=== PATIENT | female | born 1950 | race Caucasian/White ===

== ENCOUNTER 2023-06-06 01:09 | Emergency (ER) | payer OTHER ==
[~2023-06-06] VITALS: Ht 160 cm; Wt 46.3 kg
[2023-06-06 02:15] LABS: BASOPHILS ABSOLUTE AUTO 0.07 K/mm3 (0.00-0.23); BASOPHILS PERCENT AUTO 1 % (0-2); EOSINOPHILS ABSOLUTE AUTO 0.07 K/mm3 (0.00-0.68); EOSINOPHILS PERCENT AUTO 1 % (0-6); Hematocrit 37.9 % (33.0-51.0); Hemoglobin 12.4 g/dL (11.5-16.0); IMMATURE GRAN ABSOLUTE AUTO 0.09 K/mm3 (0.00-0.10); IMMATURE GRAN PERCENT AUTO 1 % (0-1); LYMPHOCYTES ABSOLUTE AUTO 1.28 K/mm3 (0.84-5.20); LYMPHOCYTES PERCENT AUTO 14 % (21-46); MONOCYTES PERCENT AUTO 9 % (4-13); Mean Corpuscular HGB 31.6 pg (26.0-34.0); Mean Corpuscular HGB Conc 32.7 g/dL (31.5-36.5); Mean Corpuscular Volume 96 fL (80-100); Mean Platelet Volume 9.4 fL (9.1-12.4); NEUTROPHILS ABSOLUTE AUTO 6.72 K/mm3 (1.96-9.15); NEUTROPHILS PERCENT AUTO 74 % (41-73); Platelet Count 503 K/mm3 (150-400); RDW Coefficient Variation 12.7 % (11.7-14.2); RDW Standard Deviation 44.8 fL (35.1-46.3); Red Blood Cell Count 3.93 M/mm3 (3.80-5.20); White Blood Cell Count 9.03 K/mm3 (4.00-11.30)
[2023-06-06 02:28] LABS: Albumin, Blood 2.5 g/dL (3.4-5.0); Albumin/Globulin Ratio 0.5 (0.8-1.8); Bilirubin, Total 0.2 mg/dL (0.1-1.0); Calcium, Blood 8.8 mg/dL (8.5-10.1); Creatinine, Blood 0.67 mg/dL (0.40-1.00); Globulin, Blood 4.6 g/dL (2.2-4.0); Potassium, Blood 4.1 mmol/L (3.5-5.5); Total Protein, Blood 7.1 g/dL (6.4-8.2)
[2023-06-06 02:54] LABS: Base Excess Venous 10.5 mmol/L; Bicarbonate Venous 32.3 mmol/L (24.0-30.0); PCO2 Venous 57.5 mmHg (38-42)
[2023-06-06] MEDS ORDERED: PRED20 PO (03:47)
[2023-06-06] MEDS ORDERED: ALBU90OI INH (03:47)
[2023-06-06] MEDS ORDERED: BREO ELLIPTA 51 EACH INH (03:47)
[2023-06-06] MEDS ORDERED: AZIT250 PO (03:48)
[2023-06-06 07:25] VITALS: BP 116/71
== END 2023-06-06 08:00 | disposition home or self-care (01) ==
LOC: ER 01:09
PROVIDERS: Emergency Medicine; Student in an Organized Health Care Education/Training Program
DX: J44.1 Chronic obstructive pulmonary disease with (acute) exacerbation (principal); F17.210 Nicotine dependence, cigarettes, uncomplicated
CPT/HCPCS: 71046; 80053; 82803; 85025; 93005; 93010; 94640; 94664; 96365; 99285-25; A9270; J3475; J7512

== ENCOUNTER 2023-06-16 18:32 | Inpatient (IN) | payer OTHER ==
[~2023-06-16] VITALS: Ht 160 cm; Wt 54.7 kg
[~2023-06-16 18:32] MED LIST: ALBU90OI INH; AZIT250 PO; BREO ELLIPTA 51 EACH INH; PRED20 PO
[2023-06-16 19:01] LABS: BASOPHILS ABSOLUTE AUTO 0.03 K/mm3 (0.00-0.23); BASOPHILS PERCENT AUTO 0 % (0-2); EOSINOPHILS ABSOLUTE AUTO 0.02 K/mm3 (0.00-0.68); EOSINOPHILS PERCENT AUTO 0 % (0-6); Hematocrit 40.9 % (33.0-51.0); Hemoglobin 13.2 g/dL (11.5-16.0); IMMATURE GRAN ABSOLUTE AUTO 0.03 K/mm3 (0.00-0.10); IMMATURE GRAN PERCENT AUTO 0 % (0-1); LYMPHOCYTES ABSOLUTE AUTO 1.11 K/mm3 (0.84-5.20); LYMPHOCYTES PERCENT AUTO 11 % (21-46); MONOCYTES ABSOLUTE AUTO 0.96 K/mm3 (0.16-1.47); MONOCYTES PERCENT AUTO 10 % (4-13); Mean Corpuscular HGB 31.7 pg (26.0-34.0); Mean Corpuscular HGB Conc 32.3 g/dL (31.5-36.5); Mean Corpuscular Volume 98 fL (80-100); Mean Platelet Volume 9.6 fL (9.1-12.4); NEUTROPHILS ABSOLUTE AUTO 7.93 K/mm3 (1.96-9.15); NEUTROPHILS PERCENT AUTO 79 % (41-73); Platelet Count 325 K/mm3 (150-400); RDW Standard Deviation 50.3 fL (35.1-46.3); Red Blood Cell Count 4.16 M/mm3 (3.80-5.20); White Blood Cell Count 10.08 K/mm3 (4.00-11.30)
[2023-06-16 19:21] LABS: Albumin, Blood 2.7 g/dL (3.4-5.0); Albumin/Globulin Ratio 0.6 (0.8-1.8); Bilirubin, Total 0.4 mg/dL (0.1-1.0); Bun/Creatinine Ratio 18.4 (12.0-20.0); Creatinine, Blood 0.6 mg/dL (0.40-1.00); Globulin, Blood 4.3 g/dL (2.2-4.0)
[2023-06-16 23:14] LABS: Influenza A, PCR NEGATIVE (NEGATIVE); Influenza B, PCR NEGATIVE (NEGATIVE); Resp Syncytial Virus, PCR NEGATIVE (NEGATIVE); SARS-Cov-2 (COVID-19) PCR, MMC NEGATIVE (NEGATIVE)
[2023-06-16 23:57] LABS: Anti-Xa UFH, PHA Monitoring <0.10 IU/mL; International Normalized Ratio 1.11; Prothrombin Time Results 11.6 Sec (9.7-11.5)
[2023-06-17] VITALS (17 sets, daily range): BP systolic 88–142; BP diastolic 58–90
--- NOTE | 2023-06-17 04:12 | NUR ---
REPORT FROM ED RN- PT BROUGHT VIA WC TO ROOM 326 - PT SPOUSE PRIYANKA AT BEDSIDE, PT UP TO BSC - PT DYSPNEA WITH EXERTION- ENCOURAGED PT TO SLOW DOWN HER BREATHING AND BREATH THROUGH HER NOSE AND PURSED LIP EXHALE- O2 SATS 93-96% - STARTED HEPARIN DRIP PER ORDER AND TELE APPLIED, PT TAKEN TO RADIOLOGY FOR A STAT CTA- PT RETURNED TO ROOM ASSESSMENT DONE- PT INDEPENDENT TO THE BSC- PT UNALBE TO SLEEP AND SITTING UP IN BED RESTING - [address] SHEARER TO STOP THE HEPARIN STAT AND RETURN CALL AND NOTIFY DR. SHEARER OF HOW MUCH HEPARIN INFUSED, 2740 UNITS INFUSED AND CALLED TO DR. SHEARER- CALL TO FORWARD CTA TO [facility] - PT ANXIOUS- OFFERED TO CALL SPOUSE PRIYANKA TO COME IN AND BE WITH PT- PT AGREED, NOTIFIED PT THAT DR. SHEARER IS ON ANOTHER LINE AND ONCE AVAILABLE WILL CALL AND REQUESTED SOMETHING FOR ANXIETY- PT AGREED, PT REPORTS SHE SUFFERS FROM ANXIETY AT TIMES.
--- NOTE | 2023-06-17 05:55 | NUR ---
[address] SHEARER REQUESTING ANXIETY MEDICATION- NEW ORDER FOR ATIVAN 0.5MG IV GIVEN- 0435 REPORT TO EUNICE ANDERSON IN PCU - PT TO GO TO RADIOLOGY FOR CTA AND THEN BE TRANSFERRED TO PCU 11- DIRECTED PT'S PRIYANKA TO GO TO ROOM PCU 11 AND PT WILL GO THERE FROM RADIOLOGY-
--- NOTE | 2023-06-17 06:01 | NUR ---
SHIFT SUMMARY PT A&0X4. SHE RECEIVED ATIVAN UP ON THE MEDICAL FLOOR PER REPORT, AND SHE FELL ASLEEP SOON AFTER SHE ARRIVED TO THE ROOM. PT ON HUMIDIFIED 4L NC MAINTAINING O2 SATURATION ABOVE 92%, LUNG SOUNDS COARSE, CONGESTED COUGH WITH THICK CLEAR/SCOTT MUCUS, PT SAID SOB WHEN SHE TALKS. HR SINUS TACH 110'S WITH OCCASIONAL PVCs, BP 129/79, PT DENIES CHEST PAIN/PRESSURE. PT REPORTS SHE IS CONTINENT OF URINE AND STOOL, NO OP YET THIS SHIFT. NO WOUNDS/SKIN BREAK DOWN PRESENT. MILD/MODERATE EDEMA BLE. IS IN ROOM WITH PT, PT SLEEPING, CALL LIGHT WITHIN REACH.
[2023-06-17 06:33] LABS: Bun/Creatinine Ratio 14.9 (12.0-20.0); Calcium, Blood 8.9 mg/dL (8.5-10.1); Creatinine, Blood 0.67 mg/dL (0.40-1.00)
--- NOTE | 2023-06-17 10:08 | NUR ---
ASSUMED CARE OF PATIENT 0700 PATIENT IS LETHARGIC WITH INTERACTION AT BEGINNING OF SHIFT. ECHO CAME AND SHE SLOWLY BECAME MORE ALERT. AT BEDSIDE. PT TACHYCARDIC AND TACHYPNIC AND SOB WITH ANY ACTIVITY EVEN TALKING. TRIED A PURWICK BUT WAS NOT HELPFUL SHE JUST WAS INCONT. IN PAD. GAVE DIURETICS TO IV, FLUSHED WITHOUT DIFFICULTY/ R FA IV. FED PT BREAKFAST BUT SHE WAS IN MORE DISTRESS SO SHE WAS ASKED TO NOT TALK AND JUST WORK ON BREATHING. OXYGENATION TITRATED UP AND DOWN FROM 4L HHF NC TO 9 L HHF NC AND THEN BACK TO 6L HHF WHERE SHE SITS CURRENTLY. ABD SOFT SHE NEEDS TO [place] ENCOURAGING HER TO USE BEDPAN AND NOT BEAR DOWN DUE TO HER DIAGNOSIS. WILL CONTINUE TO FOLLOW CARE.
--- NOTE | 2023-06-17 13:23 | NUR ---
NOON ASSESSMENT: UPDATES PATIENT HAS BEEN MILDLY ANXIOUS ESPECIALLY WHEN THE SPOUSE WALKS AWAY. PATIENT HAS NEEDED HER OXYGENATION TITRATED FREQ. TO KEEP HER OXYGENATION AT 90-92%. SHE HAS BEEN ON AND OFF THE OPEN FACE MASK TO HHF NC TITRATED FROM 3-7 LITER FLOW EACH TIME. PATIENT DROPS IN OXYGENATION WHEN TALKING AND WHEN MOVING AROUND AND EATTING. SHE HAS VOIDED FREQ. ON THE BEDPAN DUMPING 300ML EACH TIME CLEAR YELLOW URINE. VS REMAINS.. TACHYCARDIC SINUS TACH. AND RR TACHYPNEA AND SHALLOW WITH CRACKLES IN THE BASES BILAT. DR ESTRADA CAME BY AND SAW THE PATIENT. XANAX WAS ORDERED. AND NOW GIVEN. WILL CONTINUE CARE AND TREATMENT PLAN.
--- NOTE | 2023-06-17 18:02 | NUR ---
END OF SHIFT REPORT PATIENT HAS BEEN INTERMITTENTLY AWAKE THEN LETHARGIC TODAY. SHE CONTINUES TO HAVE CHALLENGES KEEPING HER OXYGENATION AT 90-92%. SHE REMAINS AT 6L HHF NC AT THIS TIME. SHE IS ENCOURAGED TO EAT HOWEVER SHE IS TO EAT SMALL SOFT BITES OF FOOD. HER ECHO RESUTLED AND HER EF IS 25-30%. SHE IS STILL ABLE TO SAY SHE NEEDS TO VOID AND USES A BEDPAN TO VOID IN AT THIS TIME. SHE IS TOO TENOUS AND LETHARGIC AND WEAK TO BE GETTING HER TO THE BEDSIDE COMMODE. IS IN ROOM GIVING LOTS OF EMOTIONAL AND PHYSICAL SUPPORT. DR ESTRADA WAS AWARE OF HER LOW SYSTOLIC BP'S AND HAS DISCONTINUED HER LASIX THIS EVENING. WILL GIVE REPORT TO NEXT SHIFT TO RESUME CARE.
[2023-06-17 22:02] LABS: PCO2 Arterial 105 mmHg (35-45); PO2 Arterial 65.7 mmHg (80-100); pH Blood Arterial 7.23 (7.35-7.45)
[2023-06-17 23:59] LABS: Base Excess Venous 15.8 mmol/L; Bicarbonate Venous 36.1 mmol/L (24.0-30.0); PCO2 Venous 82.5 mmHg (38-42); pH Blood Venous 7.32 (7.34-7.37)
[2023-06-18] VITALS (22 sets, daily range): BP systolic 95–113; BP diastolic 60–82
--- NOTE | 2023-06-18 02:00 | NUR ---
AT BEGINNING OF SHIFT PATIENT WAS ALERT AND ORIENTED. AREOUND 2112 PT'S SAID SHE BECAME DISORIENTED. AFTER ASKING PATIENT SEVERAL TIMES SHE WAS ABLE TO TELL ME HER FIRST AND LAST NAME ALONG WITH THE MONTH SHE WAS BORN, BUT SHE WAS UNABLE TO ANSWER ANY OTHER ORIENTATION QUESTIONS. SHE KEPT SAYING "OKAY" TO EVERYTHING THAT WAS ASKED. SHE HAD A COUGHING SPELL WITH THICK MUCUS AND SECRETIONS WERE SUCTIONED, HAD TO TITRATE UP TO 15L HIGH FLOW FROM 5L HIGH FLOW. MD AND RESPIRATORY THEREAPY WAS NOTIFIED. MD'S AND RESPIRATORY CAME INTO ROOM TO ASSESS PT. ABG WAS ORDERED AND CO2 CAME BACK AT 105, PT WAS PLACED ON BIPAP AND MAINTAINING 02 SATRATION ABOVE 90%. PT UNABLE TO LIFT HER ARMS, ABLE TO GRASP WITH HER FINGERS, WEAKNESS IN BOTH LEGS, ABLE TO WIGGLE TOES. PERRLA, SYMMETRICAL SMILE, ABLE TO STICK TONGUE OUT STRAIGHT AND NOT DEVIATE TO EITHER SIDE. PT'S WAS BY BEDSIDE THE MAJORITY OF NIGHT, HE LEFT TO GO HOME AND GET SOME SLEEP. PT'S DAUGHTER RELIEVED PTS , SHE DROVE DOWN FROM [place]. PT HAS BEEN SLEEPING SINCE PLACED ON BIPAP, SHE WOKE UP ONCE AND WAS RESTLESS, BUT QUICKLY FELL BACK TO SLEEP. PT'S DAUGHTER IS AT BEDSIDE, CALL LIGHT WITHIN REACH.
[2023-06-18 04:18] LABS: Base Excess Venous 18.5 mmol/L; Bicarbonate Venous 39.4 mmol/L (24.0-30.0); PCO2 Venous 64.2 mmHg (38-42); pH Blood Venous 7.43 (7.34-7.37)
--- NOTE | 2023-06-18 04:41 | NUR ---
SHIFT SUMMARY PT AWAKE AND ALERT AND ORIENTED X 4. NOW ON HUMIDIFIED HIGH FLOW NC ON 15L MAINTAINING O2 SATURATION ABOVE 90%. MD NOTIFIED AND WANTS US TO CONTINUE TO ENCOURAGE USE OF BIPAP TO FURTHER BRING DOWN CO2 LEVELS LONG PT CAN TOLERATE IT. PT DENIES SOB. HR 100'S, PT DENIES CHEST PAIN/PRESSURE, BP STABLE. PUREWICK IN PLACE SUCTIONING LUCIE COLORED URINE, ATTENDS IN PLACE WELL CHANGED PRN. MODERATE SWELLING OF BLE. PT RESTING IN BED, DAUGHTER AT BEDSIDE, CALL LIGHT WITHIN REACH.
--- NOTE | 2023-06-18 05:10 | NUR ---
PT AGREED TO GO BACK ON BIPAP FOR A BIT. SHE DENIES SOB, MAINTAINING 02 SATURATION ABOVE 90%. PT RESTING IN BED TRYING TO SLEEP. DAUGHTER AT BEDSIDE. CALL LIGHT WITHIN REACH.
[2023-06-18 05:21] LABS: BASOPHILS ABSOLUTE AUTO 0.02 K/mm3 (0.00-0.23); BASOPHILS PERCENT AUTO 0 % (0-2); EOSINOPHILS PERCENT AUTO 0 % (0-6); Hematocrit 39.3 % (33.0-51.0); IMMATURE GRAN ABSOLUTE AUTO 0.04 K/mm3 (0.00-0.10); IMMATURE GRAN PERCENT AUTO 0 % (0-1); LYMPHOCYTES ABSOLUTE AUTO 0.36 K/mm3 (0.84-5.20); LYMPHOCYTES PERCENT AUTO 4 % (21-46); MONOCYTES ABSOLUTE AUTO 0.26 K/mm3 (0.16-1.47); MONOCYTES PERCENT AUTO 3 % (4-13); Mean Corpuscular HGB 31.5 pg (26.0-34.0); Mean Corpuscular HGB Conc 30.5 g/dL (31.5-36.5); Mean Platelet Volume 10.1 fL (9.1-12.4); NEUTROPHILS ABSOLUTE AUTO 8.32 K/mm3 (1.96-9.15); NEUTROPHILS PERCENT AUTO 93 % (41-73); Platelet Count 303 K/mm3 (150-400); RDW Coefficient Variation 13.8 % (11.7-14.2); RDW Standard Deviation 52.4 fL (35.1-46.3); Red Blood Cell Count 3.81 M/mm3 (3.80-5.20)
[2023-06-18 05:40] LABS: Mean Corpuscular Volume 103 fL (80-100)
[2023-06-18 05:45] LABS: Bun/Creatinine Ratio 22.3 (12.0-20.0); Creatinine, Blood 0.58 mg/dL (0.40-1.00); Magnesium, Blood 2.1 mg/dL (1.6-2.4); Potassium, Blood 4.3 mmol/L (3.5-5.5); Thyroid Stimulating Hormone 0.145 uIU/mL (0.360-4.800)
--- NOTE | 2023-06-18 10:05 | NUR ---
ASSUMED CARE OF PT AT ABOUT ~0710. PT ON BIPAP AND SATTING >95% ON THE BIPAP. BEDREST AT THIS TIME. PT REPORTEDLY VERY SOB WITH ANY EXERTION. PT WAS EXPERIENCING INCREASING ANXIETY NOT LONG AFTER SHIFT CHANGE. ADMINISTERED PO XANAX FOR MANAGEMENT SINCE WHICH TIME PT HAS BEEN ABLE TO REST AND SLEEP COMFORTABLY. CHEST XRAY PERFORMED IN ROOM AND PT TAKEN DOWN FOR CT THIS MORNING. TOLERATED BOTH WELL. HAS BEEN SLEEPING SINCE AND SLEPT THROUGH ASSESSMENT. PUREWICK IN PLACE. NO COMPLAINTS OF PAIN. TELE ON AND FUNCTIONING WELL. BED LOCKED IN LOWEST POSITION. CALL LIGHT LEFT WITHIN REACH. FAMILY AT BEDSIDE AND ENCOURAGED TO NOTIFY STAFF OF ANY NEW CONCERNS/COMPLAINTS/QUESTIONS/ETC.
--- NOTE | 2023-06-18 15:10 | NUR ---
TRANSFER ICU PT DIFFICULTY MAINTAINING SPO2 ON BIPAP: AVAPS, 85% FIO2. RR 20s-40s. FIO2 INCREASED TO 100% W/ PT STILL HAVING DIFFICULTY. PT FAMILY REPEATEDLY ASKING FOR BIPAP TO BE REMOVED SO PT CAN EAT DESPITE EDUCATION TO PT FAMILY REGARDING RISK OF TAKING MASK OFF FOR PO INTAKE WHILE REQUIRING BIPAP W/ HIGH SETTINGS. PT STILL W/ DIFFICULTY BREATHING W/ BIPAP 100% FIO2. ICU UNDERWATER PHOTOGRAPHER, RT & DR ESTRADA TO PT RM FOR DISCUSSION W/ PT & PT FAMILY REGARDING PLAN OF CARE. MD ESTRADA W/ ORDERS FOR IV ATIVAN, IV BUMEX & TRANSFER TO ICU FOR POTENTIAL POSSIBLE INTUBATION. REPORT GIVEN TO [employer]CH[employer]IC BY PT PRIMARY RNPAYAM & PT TAKEN TO ICU-10 @ APPROX 1500.
[2023-06-18 15:41] LABS: Source, Urine Foley catheter
[2023-06-18 15:54] LABS: Appearance, Urine Clear (Clear); Bilirubin, Urine Neg (Neg); Blood, Urine 2+ (Neg); Color, Urine Yellow (P-Yellow); Glucose Qualitative, Urine Neg (Neg); Ketones, Urine Neg (Neg); Leukocyte Esterase, Urine Neg (Neg); Nitrite, Urine Neg (Neg); Protein, Urine 1+ (Neg); Urobilinogen, Urine NORM (Normal)
[2023-06-18 16:01] LABS: Bacteria Few /hpf; Squamous Epithelial Cells Few /hpf (Few); White Blood Cells, Urine 0-2 /hpf (0-5)
--- NOTE | 2023-06-18 17:32 | NUR ---
PT ARRIVAL/SHIFT SUMMARY.... PT ARRIVED TO THE UNIT FROM PCU AT 1500, SHE IS ON BIPAP 20/10 AND 100% FIO2 TO KEEP O2 SATS>88% THIS WAS EVENTUALLY TITRATED DOWN TO 90% ONCE THE PT GOT SETTLED DOWN. TEMP SHEEHAN WAS PLACED PER ORDERS AND UA WAS SENT. PICC LINE WAS PLACED PER ORDERS WNL. THE PT IS IN SR/ST 80'S-100'S BP IS SOFT BUT STABLE WITH MAPS>65. TEMP VIA TEMP SHEEHAN IS 99.6. DR. SHAH WAS AT THE BEDSIDE TO ASSESS THE PT, PT'S IN THE ROOM AT THE TIME. PLANS TO [place] TRANSFER THE PT. CALL LIGHT IN REACH WILL CONTINUE TO MONITOR UNTIL REPORT IS GIVEN TO ONCOMING RN.
--- NOTE | 2023-06-18 19:25 | NUR ---
ASSUMED CARE OF PT AT 1900. REPORT RECEIVED AT BEDSIDE. PT AWAKENS DURING REPORT AND ACKNOWLEDGES REPORT THEN FALLS ASLEEP. PT MAINTAINS SATURATIONS LOW 90'S WITH CURRENT BIPAP SETTINGS. DR WALKER HAS COME THRU UNIT. QUICK UPDATE ON PT GIVEN. WILL REVIEW CHART AND PLAN OF CARE FOR THIS PT.
--- NOTE | 2023-06-18 22:10 | NUR ---
WAS NOTIFIED THAT ACCEPTING PHYSICIAN HAS BEEN MADE WITH ACCEPTING HOSPITAL AT [facility]. ROOM ASSIGNMENT RECEIVED. CALL MADE TO PRIYANKA, PT'S , INFORMED HIM OF PENDING TRANSFER. HE VOICES UNDERSTANDING AND IS ACCEPTING OF TRANSFER. DISCUSSED WITH PT THAT SHE HAS PLANNED TRANSFER TO [facility]. SHE NODS HER HEAD 'YES' IN AGREEMENT.
--- NOTE | 2023-06-18 22:37 | NUR ---
REPORT CALLED TO JUSTIN MAX AT [facility]. [address], ROOM 725 @ [phone]. REPORT DONE IN SBAR FASHION. ALLOWED FOR QUESTIONS. AWAITING TRANSPORTATION ARRANGEMENTS.
--- NOTE | 2023-06-19 00:37 | NUR ---
PT LEAVES ICU 10 VIA EMS IN CARE OF REACH. PRIOR TO LEAVING, PT DID NOT SUSTAIN SATURATIONS >90 PERCENT WITH BIPAP 20/10 WITH FIO2 100 PERCENT. DECISION MADE BI DR WALKER PER PHONE CALL TO HAVE ER COME AND INTUBATE PT PRIOR TO TRANSFER. 150 OF SUCCICONLYINE AND 20 ETOMIDATE GIVEN FOR INTUBATION. OGT PLACED. STAT XRAY DONE AND READ. PT'S WAS PRESENT PRIOR TO INTUBATION. BOTH PRIYANKA AND PT AGREED WITH THIS PLAN. CALL MADE TO [facility] WITH UPDATE OF PT NEEDING TO INTUBATED AND THAT REACH AND EMS HAVE LEFT FOR AIRPORT.
== END 2023-06-19 00:20 | disposition short-term general hospital (02) | DRG 189 ==
LOC: ER 18:32 → PCU 22:57 → MEDS 22:57 → ICUE 22:57 → MEDS 23:50 → PCU 06-17 05:11 → ICUE 06-18 15:00
PROVIDERS: Emergency Medicine; Internal Medicine; Internal Medicine Critical Care Medicine; Student in an Organized Health Care Education/Training Program; ADMIT Internal Medicine
PROC: 5A09357 Assistance with Respiratory Ventilation, Less than 24 Consecutive Hours, Continuous Positive Airway Pressure (ICD-10-PCS; 2023-06-16)
PROC: 5A09457 Assistance with Respiratory Ventilation, 24-96 Consecutive Hours, Continuous Positive Airway Pressure (ICD-10-PCS; 2023-06-17)
PROC: 4A033R1 Measurement of Arterial Saturation, Peripheral, Percutaneous Approach (ICD-10-PCS; 2023-06-17)
PROC: 0BH17EZ Insertion of Endotracheal Airway into Trachea, Via Natural or Artificial Opening (ICD-10-PCS; principal; 2023-06-18)
PROC: 06HY33Z Insertion of Infusion Device into Lower Vein, Percutaneous Approach (ICD-10-PCS; 2023-06-18)
DX: J96.01 Acute respiratory failure with hypoxia (principal); J98.11 Atelectasis; J90 Pleural effusion, not elsewhere classified; I42.9 Cardiomyopathy, unspecified; E44.0 Moderate protein-calorie malnutrition; Z11.52 Encounter for screening for COVID-19; I71.20 Thoracic aortic aneurysm, without rupture, unspecified; I71.40 Abdominal aortic aneurysm, without rupture, unspecified; F17.210 Nicotine dependence, cigarettes, uncomplicated; J43.9 Emphysema, unspecified; J96.02 Acute respiratory failure with hypercapnia; R79.1 Abnormal coagulation profile; I27.20 Pulmonary hypertension, unspecified; Z28.21 Immunization not carried out because of patient refusal; Z68.21 Body mass index [BMI] 21.0-21.9, adult
CPT/HCPCS: 0241U; 31500; 36415; 36569; 36600; 51702; 71045; 71046; 71260; 71275; 74174; 80048; 80053; 81001; 82803; 82947; 83735; 83880; 84443; 84484; 85025; 85379; 85520; 85610; 85651; 85730; 93005; 93010; 94002; 94640; 94660; 94664; 94762; 96374; 99285-25; A9270; C1751; C8929; J0330; J0456; J0696; J1644; J1940; J2060; J2704; J2930; J7030; J7050; Q9957; Q9967

== ENCOUNTER 2023-06-30 18:31 | Observation (INO) | payer OTHER ==
[~2023-06-30] VITALS: Ht 160 cm; Wt 47.5 kg
[2023-06-30 19:16] LABS: BASOPHILS ABSOLUTE AUTO 0.06 K/mm3 (0.00-0.23); BASOPHILS PERCENT AUTO 1 % (0-2); EOSINOPHILS ABSOLUTE AUTO 0.11 K/mm3 (0.00-0.68); EOSINOPHILS PERCENT AUTO 1 % (0-6); Hematocrit 41.2 % (33.0-51.0); Hemoglobin 13.6 g/dL (11.5-16.0); IMMATURE GRAN ABSOLUTE AUTO 0.05 K/mm3 (0.00-0.10); IMMATURE GRAN PERCENT AUTO 1 % (0-1); LYMPHOCYTES ABSOLUTE AUTO 1.97 K/mm3 (0.84-5.20); LYMPHOCYTES PERCENT AUTO 18 % (21-46); MONOCYTES ABSOLUTE AUTO 0.95 K/mm3 (0.16-1.47); MONOCYTES PERCENT AUTO 9 % (4-13); Mean Corpuscular HGB 31.5 pg (26.0-34.0); Mean Corpuscular Volume 95 fL (80-100); Mean Platelet Volume 10.1 fL (9.1-12.4); NEUTROPHILS ABSOLUTE AUTO 7.55 K/mm3 (1.96-9.15); NEUTROPHILS PERCENT AUTO 71 % (41-73); Platelet Count 311 K/mm3 (150-400); RDW Coefficient Variation 13.7 % (11.7-14.2); Red Blood Cell Count 4.32 M/mm3 (3.80-5.20); White Blood Cell Count 10.69 K/mm3 (4.00-11.30)
[2023-06-30 19:38] LABS: Albumin, Blood 2.8 g/dL (3.4-5.0); Albumin/Globulin Ratio 0.8 (0.8-1.8); Bilirubin, Total 0.4 mg/dL (0.1-1.0); Calcium, Blood 8.9 mg/dL (8.5-10.1); Creatinine, Blood 0.6 mg/dL (0.40-1.00); Globulin, Blood 3.5 g/dL (2.2-4.0); Potassium, Blood 3.7 mmol/L (3.5-5.5); Total Protein, Blood 6.3 g/dL (6.4-8.2)
[2023-07-01 02:10] VITALS: BP 107/61
[2023-07-01] MEDS ORDERED: ASPI81CH PO (02:25)
[2023-07-01] MEDS ORDERED: CLOP75 PO (02:27)
[2023-07-01] MEDS ORDERED: ATORVASTATIN CA80 M1 PO (02:27)
[2023-07-01] MEDS ORDERED: ENTRESTO 24 MG1 EACH PO (02:29)
[2023-07-01] MEDS ORDERED: FURO20 PO (02:30)
[2023-07-01] MEDS ORDERED: JARDIANCE10 MG PO (02:31)
[2023-07-01] MEDS ORDERED: METO50ER PO (02:32)
[2023-07-01] MEDS ORDERED: ALBU90OI INH (02:33)
[2023-07-01] MEDS ORDERED: SPIR25 PO (02:33)
--- NOTE | 2023-07-01 05:29 | NUR ---
SHIFT SUMMARY NOC A/O X 4. PLEASANT AND COOPERATIVE WITH CARE. ADMIT FROM ED WITH DX OF HYPOXIA. PT REPORTS SOB HAS GOTTEN WORSE OVER PAST MONTH. PT RECENTLY HAD 3 STENTS PLACED UP AT [facility] [place]. PT IS ON O2 2L/NC SPO2 > 92%. PT IS SBA TO BSC, CONT. PT ON TELE RUNNING NSR IN 70'S. PT HAS STAGE 1 PU ON COCCYX, MEPILEX DRESSING IN PLACE C/D/I. RX IS RECONCILED, AND AWAWITING OT PLACE ORDERS. PT IS CURRENTLY RESTING WITH BED IN LOWEST POSITION, AND CALL LIGHT WITHIIN REACH.
[2023-07-01 07:37] VITALS: BP 107/68
--- NOTE | 2023-07-01 14:19 | NUR ---
PT DISCHARGED FROM THE UNIT. IV REMOVED. DISCHARGE INSTRUCTIONS REVIEWED. MEDICATIONS FAXED TO [facility]. PT LEFT UNIT VIA WC WITH
== END 2023-07-01 14:18 | disposition home or self-care (01) ==
LOC: ER 18:31 → MEDS 18:32 → ENPENDDIS 07-01 12:06 → MEDS 07-01 14:18
PROVIDERS: Emergency Medicine; ADMIT Internal Medicine
DX: J96.01 Acute respiratory failure with hypoxia (principal); J44.9 Chronic obstructive pulmonary disease, unspecified; E43 Unspecified severe protein-calorie malnutrition; I50.22 Chronic systolic (congestive) heart failure; I25.2 Old myocardial infarction; F17.210 Nicotine dependence, cigarettes, uncomplicated; Z68.1 Body mass index [BMI] 19.9 or less, adult; I27.20 Pulmonary hypertension, unspecified; I71.40 Abdominal aortic aneurysm, without rupture, unspecified; J98.11 Atelectasis
CPT/HCPCS: 36415; 71046; 80053; 83605; 83880; 85025; 93005; 93010; 94761; 94762; 96360; 96361; 96372; 99285-25; A9270; G0378; J1650; J7030

== ENCOUNTER 2024-02-12 13:53 | Emergency (ER) | payer OTHER ==
[~2024-02-12] VITALS: Ht 160 cm; Wt 55.3 kg
[~2024-02-12 13:53] MED LIST changes: +ASPI81CH PO; +ATORVASTATIN CA80 M1 PO; +CLOP75 PO; +ENTRESTO 24 MG1 EACH PO; +FURO20 PO; +JARDIANCE10 MG PO; +METO50ER PO; +SPIR25 PO
[2024-02-12 13:57] VITALS: BP 111/90
[2024-02-12] MEDS ORDERED: Norco 5-325 Ta1 EACH PO (17:48)
== END 2024-02-12 17:56 | disposition home or self-care (01) ==
LOC: ER 13:53
DX: I73.9 Peripheral vascular disease, unspecified (principal); Z79.82 Long term (current) use of aspirin; Z79.899 Other long term (current) drug therapy; I25.2 Old myocardial infarction; J44.9 Chronic obstructive pulmonary disease, unspecified; F17.210 Nicotine dependence, cigarettes, uncomplicated; I50.20 Unspecified systolic (congestive) heart failure; I25.810 Atherosclerosis of coronary artery bypass graft(s) without angina pectoris; I51.89 Other ill-defined heart diseases
CPT/HCPCS: 93926; 93971; 99283-25; C8929; Q9957